=== PATIENT | female | born 1980 | race Caucasian/White ===

== ENCOUNTER 2018-05-09 11:27 | Emergency (ER) | payer OTHER ==
[~2018-05-09] VITALS: Ht 157.5 cm; Wt 127.0 kg
[~2018-05-09 11:27] MED LIST: IBUPROFEN800 M1 PO
--- NOTE | 2018-05-09 12:24 | RADIOLOGY REPORT ---
EXAMINATION: XR LEFT ANKLE XR LEFT FOOT CLINICAL INFORMATION: Left ankle and foot pain after fall. COMPARISON: None TECHNIQUE: 3 views of the left ankle and 3 views of the left foot were obtained. FINDINGS: No fracture or dislocation. The ankle mortise is congruent. No widening of the tibiofibular syndesmosis. Distal Achilles enthesopathy. Plantar calcaneal spurring. Mild hallux valgus alignment with early bunion formation. Incidental os navicularis. No significant soft tissue abnormality. No evidence of tibiotalar joint effusion. IMPRESSION: No acute osseous abnormality demonstrated.
[2018-05-09] MEDS ORDERED: IBUPROFEN800 M1 PO (13:52)
--- NOTE | 2018-05-09 13:52 | ED ANKLE/FOOT INJURY COMPLAINT ---
History of Present Illness General Chief Complaint: Lower Extremity Problems Stated Complaint: PER PT "L ANKLE GAVE OUT? LEADING HER TO FALL" Source: patient Exam Limitations: no limitations Vital Signs & Intake/Output Vital Signs & Intake/Output Vital Signs Date Time Temp Pulse Resp B/P B/P Pulse O2 O2 Flow FiO2 Mean Ox Delivery Rate 05/09 1142 98.1 90 16 132/82 96 Room Air Allergies Coded Allergies: Sulfa (Sulfonamide Antibiotics) (Intermediate, HIVES 06/09/16) Uncoded Allergies: NUTS (06/09/16) Reconcile Medications Ibuprofen 800 MG TABLET 1 TAB PO TID PRN PAIN Ibuprofen 800 MG TABLET 1 TAB PO TID PAIN Triage Note: 38 Y/O FEMALE C/O L FOOT PAIN S/P SLIP AND FALL THIS MORNING. MEDICATED WITH IBUPROPHEN PER SKYLER HOLLOWAY. XRAY ORDERED Triage Nurses Notes Reviewed? yes Occurred: just prior to arrival Duration: day(s): (1), constant, continues in ED Timing: single episode today Severity: moderate, severe Severity Numbers: 7 Pain/Injury Location: Left: Foot, Ankle. Method of Injury: fall, twisted No Modifying Factors: none : No Patient currently breastfeeds: No HPI: 38-year-old female history of hypertension presents for evaluation of pain in her left foot and ankle. Patient reports symptoms started after a fall this morning. Patient reports she tripped and twisted her ankle. She reports pain to the medial foot and ankle. Pain is worse with movement she has not been able to bear weight. She denies any head strike or loss of consciousness no numbness or tingling no knee pain hip pain or any other injuries. Past History Travel History Traveled to [place] past 21 day No Medical History Any Pertinent Medical History? 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 No Review of Systems Review of Systems Constitutional: Reports: no symptoms. EENTM: Reports: no symptoms. Respiratory: Reports: no symptoms. Cardiovascular: Reports: no symptoms. GI: Reports: no symptoms. Genitourinary: Reports: no symptoms. Musculoskeletal: Reports: joint pain, joint swelling, muscle pain, muscle stiffness. Skin: Reports: no symptoms. Neurological/Psychological: Reports: no symptoms. Hematologic/Endocrine: Reports: no symptoms. Immunologic/Allergic: Reports: no symptoms. All Other Systems: Reviewed and Negative Physical Exam Physical Exam General Appearance: well developed/nourished, no apparent distress, alert, awake Head: atraumatic, normal appearance Eyes: Bilateral: normal appearance, EOMI. Ears, Nose, Throat: hearing grossly normal Neck: normal inspection, supple, full range of motion Cardiovascular/Respiratory: no respiratory distress Back: normal inspection, normal range of motion Leg/Knee/Thigh Left: normal range of motion, normal inspection Leg/Knee/Thigh Right: normal range of motion, normal inspection Ankle Left: there is mild soft tissue swelling and ttp to the medial ankle and foot. no brusing or abraisons, no gross deformity. n/v supply intact Ankle Right: normal inspection, normal range of motion Foot Left: there is ttp and mild soft tissue swelling to the medial foot. no brusing or abrasions. n/v supply intact Foot Right: normal inspection, normal range of motion Neuro/Vascular: normal motor function, normal sensation Tendon: normal tendon function Psychiatric: awake, alert, oriented x 3 Skin: intact, normal color, warm/dry Progress Differential Diagnosis: septic arthritis, gout, fracture, dislocation, sprain, contusion Plan of Care: Patient history evaluation of left foot and ankle pain after fall. She has some pain and soft tissue swelling to the medial ankle and medial foot. No gross deformity. Neurovascular supply intact. X-rays were obtained and are negative for fracture patient was medicated with ibuprofen. Advised rest ice elevation compression. Tylenol Profen for pain patient was given crutches and an Teodoro wrap. Discussed return precautions follow-up with the primary care doctor patient agrees the plan Diagnostic Imaging: Viewed by Me: Radiology Read. Discussed w/RAD: Radiology Read. Radiology Impression: PATIENT: DONNIE MELENDEZ PRESENT AGE: 38 PATIENT ACCOUNT NO: [id number] : 78 LOCATION: [facility] ORDERING PHYSICIAN: Westley HOLLAND SERVICE DATE: 05/09/18 EXAM TYPE: RAD - XRY- ANKLE 3 OR MORE VIEWS L; XRY-FOOT COMPLETE, LEFT EXAMINATION: XR LEFT ANKLE XR LEFT FOOT CLINICAL INFORMATION: Left ankle and foot pain after fall. COMPARISON: None TECHNIQUE: 3 views of the left ankle and 3 views of the left foot were obtained. FINDINGS: No fracture or dislocation. The ankle mortise is congruent. No widening of the tibiofibular syndesmosis. Distal Achilles enthesopathy. Plantar calcaneal spurring. Mild hallux valgus alignment with early bunion formation. Incidental os navicularis. No significant soft tissue abnormality. No evidence of tibiotalar joint effusion. IMPRESSION: No acute osseous abnormality demonstrated. DICTATED BY: Clifford Marie MD DATE/TIME DICTATED:05/09/181217 SERVICE CLEANER:CHIOMA DATE/TIME TRANSCRIBED:05/09/181217 CONFIDENTIAL, DO NOT COPY WITHOUT APPROPRIATE AUTHORIZATION. <Electronically signed in Other Vendor System> SIGNED BY: Clifford Marie MD 05/09/18 1224 Departure Departure Disposition: HOME OR SELF CARE Condition: Stable Clinical Impression Primary Impression: Strain of foot, left Qualifiers: Encounter type: initial encounter Qualified Code: S96.912A - Strain of unspecified muscle and tendon at ankle and foot level, left foot, initial encounter Referrals: Tanvir Powell MD (PCP/Family) Additional Instructions: Rest, wear Teodoro wrap walk with crutches. Keep your foot elevated. Apply ice for 15-20 minutes every few hours. Tylenol ibuprofen as needed for pain. Make a follow-up appointment with your primary care doctor for recheck in a few days. Monitor your symptoms return with any concerns. Departure Forms: Customer Survey General Discharge Information Prescriptions: Current Visit Scripts Ibuprofen 1 TAB PO TID PRN PAIN #30 TAB
[2018-05-09 14:03] VITALS: BP 130/80
== END 2018-05-09 14:13 ==
LOC: ERH 11:27
DX: S93.602A Unspecified sprain of left foot, initial encounter (principal); W19.XXXA Unspecified fall, initial encounter; Y92.9 Unspecified place or not applicable; Y93.9 Activity, unspecified; I10 Essential (primary) hypertension; Z87.891 Personal history of nicotine dependence
CPT/HCPCS: 73610-LT; 73630-LT